=== PATIENT | female | born 1935 | race Caucasian/White ===

== ENCOUNTER 2019-04-02 16:08 | Emergency (ER) | payer MEDICARE, OTHER ==
[~2019-04-02] VITALS: Ht 160 cm; Wt 59.0 kg
[2019-04-02 16:18] VITALS: BP 132/41
== END 2019-04-02 20:26 | disposition home or self-care (01) ==
LOC: ER 16:08
DX: T16.1XXA Foreign body in right ear, initial encounter (principal); W22.8XXA Striking against or struck by other objects, initial encounter; Y93.89 Activity, other specified; Y92.89 Other specified places as the place of occurrence of the external cause; Y99.8 Other external cause status
CPT/HCPCS: 69200